=== PATIENT | male | born 1995 | race Two or more races ===

== ENCOUNTER 2018-04-09 22:12 | Inpatient (IN) | payer MEDICAID ==
[~2018-04-09] VITALS: Ht 177.8 cm; Wt 90.7 kg
[2018-04-09 22:25] VITALS: BP 175/95
[2018-04-09] MEDS ORDERED: Lidocaine 1% 10mg/ml/Epi 0.005mg/ml 30ml vial INJ ONE (23:15)
[2018-04-09] MEDS ORDERED: ceFAZolin 1gm/50ml Premix 50 ML IV ONE (23:15)
[2018-04-09] MEDS ORDERED: Morphine Sulfate 4mg/ml Inj IVP ONE (23:15)
[2018-04-09] MEDS ORDERED: Lidocaine HCl 2% Jelly 5ml Tube TOPIC ONE (23:15)
[2018-04-09] MEDS ORDERED: Ketorolac 30mg Inj IV ONE (23:15)
[2018-04-09] MEDS ORDERED: Neosporin Oint Ud Pkt TOP ONE (23:15)
[2018-04-10] MEDS ORDERED: Lidocaine HCl 2% Jelly 5ml Tube TOPIC ONE ×2 (00:30→00:35)
[2018-04-10] MEDS ORDERED: ceFAZolin 2gm/50ml Premix 50 ML ONE (00:57)
[2018-04-10] MEDS ORDERED: ceFAZolin 2gm/50ml Premix 50 ML IVPB ONE (01:00)
[2018-04-10] MEDS ORDERED: Morphine Sulfate 4mg/ml Inj IVP ONE (03:00)
[2018-04-10 03:02] VITALS: BP 135/89
[2018-04-10] MEDS ORDERED: LET 3ml Soln TOPIC ONE (05:00)
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
[2018-04-10] MEDS: Morphine Sulfate 4mg/ml Inj IVP PRN ×2 (05:55→11:06)
[2018-04-10] MEDS ORDERED: Bacitracin Oint UD TOPIC ONE (06:15)
[2018-04-10 06:37] VITALS: BP 142/96
[2018-04-10 07:15] LABS: ANION GAP 9 mmol/L (5-15); BLOOD UREA NITROGEN 14 mg/dL (7-18); CALCIUM 8.7 MG/DL (8.5-10.1); CARBON DIOXIDE 26 MMOL/L (21-32); CHLORIDE 101 MMOL/L (98-107); CREATININE 1.1 MG/DL (0.55-1.30); POTASSIUM 3.7 MMOL/L (3.5-5.1); SODIUM 136 MMOL/L (136-145)
[2018-04-10 07:20] LABS: ALANINE AMINOTRANSFERASE 161 U/L (12-78); ALBUMIN 4.2 G/DL (3.4-5.0); ALBUMIN/GLOBULIN RATIO 1.2 (1.0-2.7); ALKALINE PHOSPHATASE 101 U/L (46-116); ASPARTATE AMINO TRANSFERASE 63 U/L (15-37); BILIRUBIN,TOTAL 0.8 MG/DL (0.2-1.0)
[2018-04-10 07:28] LABS: BASOPHILS % (AUTO) 0.7 % (0.0-2.0); EOSINOPHILS % (AUTO) 1.4 % (0.0-3.0); HEMATOCRIT 44.6 % (42.0-52.0); HEMOGLOBIN 15.9 G/DL (14.2-18.0); LYMPHOCYTES % (AUTO) 12.3 % (20.0-45.0); MEAN CORPUSCULAR VOLUME 89 FL (80-99); MONOCYTES % (AUTO) 10.7 % (1.0-10.0); NEUTROPHILS % (AUTO) 74.9 % (45.0-75.0); PLATELET COUNT 144 K/UL (150-450); RED CELL DISTRIBUTION WIDTH 11.3 % (11.6-14.8); WHITE BLOOD COUNT 11.6 K/UL (4.8-10.8)
[2018-04-10 08:00] VITALS: BP 147/92
--- NOTE | 2018-04-10 08:04 | Consultation ---
Consult Note Consult Note patient seen evaluated. Right knee laceration over patella. No Fracture. Wound irrigated and debrided in the ER this am. Will require secondary debridement in the OR. Schedule to proceed with wash out and debridement. EKG preop. NPO Past midnight Herber Sanon MD Apr 10, 2018 08:04
[2018-04-10] MEDS ORDERED: ceFAZolin 1gm/50ml Premix 50 ML IV SCH (08:15)
[2018-04-10 08:23] LABS: APPEARANCE,URINE CLEAR; BILIRUBIN, URINE NEGATIVE (NEGATIVE); GLUCOSE, URINE (UA) NEGATIVE (NEGATIVE); KETONES,URINE NEGATIVE (NEGATIVE); LEUKOCYTE ESTERASE ,URINE NEGATIVE (NEGATIVE); NITRITE,URINE NEGATIVE (NEGATIVE); PH,URINE 6 (4.5-8.0); PROTEIN,URINE 1+ (NEGATIVE); UROBILINOGEN,URINE NORMAL MG/DL (0.0-1.0)
[2018-04-10 08:31] LABS: COLOR,URINE YELLOW
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
[2018-04-10] MEDS ORDERED: ceFAZolin 1gm in D5W 55ml IVP SCH (11:00)
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
[2018-04-10 12:00] VITALS: BP 167/110
--- NOTE | 2018-04-10 12:23 | Anethesia Preoperative Eval ---
Anesthesia Pre-op PMH/ROS General Date of Evaluation: Apr 10, 2018 Time of Evaluation: 14:13 Anesthesiologist: Smiley ASA Score: ASA 1 Mallampati Score Class I : Soft palate, uvula, fauces, pillars visible Class II: Soft palate, uvula, fauces visible Class III: Soft palate, base of uvula visible Class IV: Only hard plate visible Mallampati Classification: Class I Surgeon: Talita Diagnosis: R Knee Pain Surgical Procedure: R Knee I and D Anesthesia History: none Family History: no anesthesia problems Allergies: Coded Allergies: No Known Allergies (Unverified , 04/09/18) Medications: see eMAR Past Medical History Hematology/Immune: Reports: other - Leukocytosis Anesthesia Pre-op Phys. Exam Physician Exam Last Vital Signs Date Time Temp Pulse Resp B/P (MAP) Pulse Ox O2 Delivery O2 Flow Rate FiO2 04/10/18 11:36 98.3 04/10/18 08:00 79 20 147/92 97 04/10/18 06:48 Room Air Constitutional: NAD Neurologic: CN 2-12 intact Cardiovascular: RRR Respiratory: CTA Gastrointestinal: S/NT/ND Airway Exam Mallampati Score: Class I MO: full ROM: full Teeth: intact Anesthesia Pre-op A/P Labs Hematology Test 04/10/18 06:44 White Blood Count 11.6 K/UL (4.8-10.8) H Red Blood Count 5.00 M/UL (4.70-6.10) Hemoglobin 15.9 G/DL (14.2-18.0) Hematocrit 44.6 % (42.0-52.0) Mean Corpuscular Volume 89 FL (80-99) Mean Corpuscular Hemoglobin 31.8 PG (27.0-31.0) H Mean Corpuscular Hemoglobin Concent 35.6 G/DL (32.0-36.0) Red Cell Distribution Width 11.3 % (11.6-14.8) L Platelet Count 144 K/UL (150-450) L Mean Platelet Volume 7.1 FL (6.5-10.1) Neutrophils (%) (Auto) 74.9 % (45.0-75.0) Lymphocytes (%) (Auto) 12.3 % (20.0-45.0) L Monocytes (%) (Auto) 10.7 % (1.0-10.0) H Eosinophils (%) (Auto) 1.4 % (0.0-3.0) Basophils (%) (Auto) 0.7 % (0.0-2.0) Coagulation Test 04/10/18 06:44 Prothrombin Time 10.0 SEC (9.30-11.50) Prothromb Time International Ratio 1.0 (0.9-1.1) Activated Partial Thromboplast Time 26 SEC (23-33) Chemistry Test 04/10/18 06:44 Sodium Level 136 MMOL/L (136-145) Potassium Level 3.7 MMOL/L (3.5-5.1) Chloride Level 101 MMOL/L (98-107) Carbon Dioxide Level 26 MMOL/L (21-32) Anion Gap 9 mmol/L (5-15) Blood Urea Nitrogen 14 mg/dL (7-18) Creatinine 1.1 MG/DL (0.55-1.30) Estimat Glomerular Filtration Rate > 60 mL/min (>60) Glucose Level 124 MG/DL (74-106) H Calcium Level 8.7 MG/DL (8.5-10.1) Total Bilirubin 0.8 MG/DL (0.2-1.0) Aspartate Amino Transf (AST/SGOT) 63 U/L (15-37) H Alanine Aminotransferase (ALT/SGPT) 161 U/L (12-78) H Alkaline Phosphatase 101 U/L (46-116) Total Protein 7.8 G/DL (6.4-8.2) Albumin 4.2 G/DL (3.4-5.0) Globulin 3.6 g/dL Albumin/Globulin Ratio 1.2 (1.0-2.7) Risk Assessment & Plan Assessment: ASA 1 Plan: GA Status Change Before Surgery: No Pre-Antibiotics Drug: Wali Christianson MD Apr 10, 2018 12:23
[2018-04-10] MEDS: ceFAZolin sod 1 GM in D5W 110 ML IVP SCH ×2 (12:49→19:51)
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
[2018-04-10] MEDS ORDERED: Hydromorphone 0.5mg/0.5ml inj IVP PRN (13:45)
[2018-04-10] MEDS ORDERED: Heparin 5000 units/ml inj SUBQ SCH ×2 (14:00→21:00)
[2018-04-10 16:00] VITALS: BP 167/98
[2018-04-10] MEDS: Hydromorphone 0.5mg/0.5ml inj IVP PRN ×4 (16:33→22:37)
[2018-04-10 20:00] VITALS: BP 157/92
[2018-04-11] VITALS (14 sets, daily range): BP systolic 135–179; BP diastolic 65–107
[2018-04-11] MEDS: Hydromorphone 0.5mg/0.5ml inj IVP PRN ×10 (01:03→23:53)
[2018-04-11] MEDS: ceFAZolin sod 1 GM in D5W 110 ML IVP SCH (03:17)
[2018-04-11] MEDS ORDERED: NeoSporin Gu Irrig 1ml Amp IRRIG ONE (06:26)
[2018-04-11] MEDS ORDERED: Bacitracin 50000 Units Vial ONE (06:26)
[2018-04-11] MEDS ORDERED: EPINEPHrine 1mg/1ml Amp ONE (06:26)
[2018-04-11] MEDS ORDERED: Ropivacaine 5mg/ml Vial 30ml INJ ONE (06:26)
[2018-04-11] MEDS ORDERED: Bupivacaine 0.5% Inj 30 ml vial INJ ONE (06:26)
[2018-04-11] MEDS ORDERED: Lidocaine 1% MPF 10mg/ml 5ml ONE (06:44)
[2018-04-11] MEDS ORDERED: Propofol 200mg/20ml IV ONE ×2 (06:44→07:16)
[2018-04-11] MEDS ORDERED: Midazolam 2mg/2ml Inj ONE (06:58)
[2018-04-11] MEDS ORDERED: fentaNYL 100 mcg/2 mL IV ONE (06:58)
[2018-04-11] MEDS ORDERED: Zemuron 50mg/5ml Inj IV ONE (06:59)
[2018-04-11] MEDS ORDERED: Labetalol 5mg/ml 20ml vial IV ONE (07:00)
[2018-04-11] MEDS ORDERED: NS Irrig 4000ml IRRIG ONE (07:00)
[2018-04-11] MEDS ORDERED: Sterile Water Irrig 1000ml IRRIG ONE (07:00)
[2018-04-11] MEDS ORDERED: LR 1000ml ONE (07:00)
[2018-04-11 07:01] LABS: ALANINE AMINOTRANSFERASE 124 U/L (12-78); ALBUMIN 3.8 G/DL (3.4-5.0); ALKALINE PHOSPHATASE 95 U/L (46-116); ANION GAP 9 mmol/L (5-15); ASPARTATE AMINO TRANSFERASE 46 U/L (15-37); BLOOD UREA NITROGEN 9 mg/dL (7-18); CALCIUM 8.5 MG/DL (8.5-10.1); CARBON DIOXIDE 27 MMOL/L (21-32); CHLORIDE 100 MMOL/L (98-107); CREATININE 0.9 MG/DL (0.55-1.30); POTASSIUM 3.6 MMOL/L (3.5-5.1); SODIUM 136 MMOL/L (136-145)
--- NOTE | 2018-04-11 07:03 | Pre-Procedure Note/Attestation ---
Pre-Procedure Note/Attestation Complete Prior to Procedure Planned Procedure: left Procedure Narrative: left knee I&D of wound Indications for Procedure Pre-Operative Diagnosis: left knee infected wound Attestation I attest that I discussed the nature of the procedure; its benefits; risks and complications; and alternatives (and the risks and benefits of such alternatives ), prior to the procedure, with the patient (or the patient's legal textile designs sales representative). I attest that, if there was a reasonable possibility of needing a blood transfusion, the patient (or the patient's legal textile designs sales representative) was given the [facility] standardized written summary, pursuant to the [place] Blood Safety Act ([place] Health and Safety Code # 1645, as amended). I attest that I re-evaluated the patient just prior to the surgery and that there has been no change in the patient's H&P, except as documented below:none Herber Sanon MD Apr 11, 2018 07:03
[2018-04-11 07:12] LABS: BASOPHILS % (AUTO) 0.5 % (0.0-2.0); EOSINOPHILS % (AUTO) 2.5 % (0.0-3.0); HEMATOCRIT 44.6 % (42.0-52.0); HEMOGLOBIN 15.3 G/DL (14.2-18.0); LYMPHOCYTES % (AUTO) 9.5 % (20.0-45.0); MEAN CORPUSCULAR VOLUME 91 FL (80-99); MONOCYTES % (AUTO) 9.8 % (1.0-10.0); NEUTROPHILS % (AUTO) 77.8 % (45.0-75.0); PLATELET COUNT 126 K/UL (150-450); RED BLOOD COUNT 4.92 M/UL (4.70-6.10); RED CELL DISTRIBUTION WIDTH 11.2 % (11.6-14.8); WHITE BLOOD COUNT 12.2 K/UL (4.8-10.8)
[2018-04-11] MEDS ORDERED: Norco 5mg/325mg tab ORAL PRN (07:15)
[2018-04-11] MEDS ORDERED: LR 1000ml 1,000 ML IVLG SCH (07:31)
[2018-04-11] MEDS ORDERED: fentaNYL 100 mcg/2 mL IV PRN (07:45)
[2018-04-11] MEDS ORDERED: Midazolam 2mg/2ml Inj IVP PRN (07:45)
[2018-04-11] MEDS ORDERED: Hydromorphone 0.5mg/0.5ml inj IVP PRN (07:45)
[2018-04-11] MEDS ORDERED: DiphenhydrAMINE 50mg/ml Inj IVP PRN (07:45)
[2018-04-11] MEDS ORDERED: Labetalol 5mg/ml 20ml vial IV PRN (07:45)
--- NOTE | 2018-04-11 08:03 | Brief Operative Note ---
Immediate Post Operative Note Operative Note Chief Complaint: left knee infected laceration Pre-op Diagnosis: left knee infected laceration Procedure: left knee I&D of wound Post-op Diagnosis: same as pre-op Findings: consistent w/pre-op dx studies Surgeon: md kelby Vegetable Trimmer: roland leigh Anesthesiologist: md alexis Anesthesia: general Specimen: yes Complications: none Condition: stable Fluids: ns Estimated Blood Loss: minimal Drains: none Implant(s) used?: No Yamileth Leigh Apr 11, 2018 08:03
--- NOTE | 2018-04-11 08:23 | Immediate Post-Op Evaluation ---
Immediate Post-Op Evalulation Immediate Post-Op Evalulation Procedure: I&D left knee Date of Evaluation: Apr 11, 2018 Time of Evaluation: 08:06 IV Fluids: LR 700ml Blood Products: 0 Estimated Blood Loss: 10ml Urinary Output: 0 Blood Pressure Systolic: 179 Blood Pressure Diastolic: 107 Pulse Rate: 89 Respiratory Rate: 21 O2 Sat by Pulse Oximetry: 98 Temperature (Fahrenheit): 98.3 Pain Score (1-10): 0 Nausea: No Vomiting: No Complications none Patient Status: awake, patent, none Hydration Status: adequate Drug: none Radha Ying M.D. Apr 11, 2018 08:23
[2018-04-11] MEDS: D5 1/2NS 1,000 ML IV SCH ×2 (09:15→20:15)
--- NOTE | 2018-04-11 09:36 | Diagnostic Imaging Report ---
Indication: Dyspnea Technique: One view of the chest Comparison: none Findings: Lungs and pleural spaces are clear. Heart size is normal Impression: No acute process
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
[2018-04-11] MEDS: Docusate Sod/Senna tab ORAL SCH ×2 (10:50→17:41)
[2018-04-11] MEDS: ceFAZolin sod 1 GM in D5W 110 ML IVPB SCH ×2 (12:14→20:00)
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
[2018-04-11] MEDS ORDERED: Simethicone Drops 80mg/1.2ml ORAL ONE (14:00)
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
[2018-04-12] VITALS: BP 128/84
[2018-04-12] MEDS: D5 1/2NS 1,000 ML IV SCH (01:43)
[2018-04-12 04:00] VITALS: BP 131/86
[2018-04-12] MEDS: ceFAZolin sod 1 GM in D5W 110 ML IVPB SCH (04:08)
[2018-04-12] MEDS: Hydromorphone 0.5mg/0.5ml inj IVP PRN (04:13)
[2018-04-12 06:12] LABS: BASOPHILS % (AUTO) 0.8 % (0.0-2.0); EOSINOPHILS % (AUTO) 6.6 % (0.0-3.0); HEMATOCRIT 41.5 % (42.0-52.0); HEMOGLOBIN 14.3 G/DL (14.2-18.0); LYMPHOCYTES % (AUTO) 20.8 % (20.0-45.0); MEAN CORPUSCULAR VOLUME 92 FL (80-99); MONOCYTES % (AUTO) 11.8 % (1.0-10.0); NEUTROPHILS % (AUTO) 60.1 % (45.0-75.0); PLATELET COUNT 124 K/UL (150-450); RED BLOOD COUNT 4.53 M/UL (4.70-6.10); RED CELL DISTRIBUTION WIDTH 11.3 % (11.6-14.8); WHITE BLOOD COUNT 7.8 K/UL (4.8-10.8)
[2018-04-12 06:35] LABS: ALANINE AMINOTRANSFERASE 135 U/L (12-78); ALBUMIN 3.7 G/DL (3.4-5.0); ALKALINE PHOSPHATASE 93 U/L (46-116); ANION GAP 9 mmol/L (5-15); ASPARTATE AMINO TRANSFERASE 73 U/L (15-37); BILIRUBIN,TOTAL 0.8 MG/DL (0.2-1.0); BLOOD UREA NITROGEN 6 mg/dL (7-18); CALCIUM 8.9 MG/DL (8.5-10.1); CARBON DIOXIDE 29 MMOL/L (21-32); CHLORIDE 100 MMOL/L (98-107); CREATININE 1.1 MG/DL (0.55-1.30); POTASSIUM 3.3 MMOL/L (3.5-5.1); SODIUM 138 MMOL/L (136-145)
--- NOTE | 2018-04-12 08:54 | 48 Hour Post Anesthesia Eval ---
Post Anesthesia Evaluation Procedure: I&D left knee Date of Evaluation: Apr 12, 2018 Time of Evaluation: 08:53 Blood Pressure Systolic: 128 0: 82 Pulse Rate: 76 Respiratory Rate: 20 Temperature (Fahrenheit): 97.6 O2 Sat by Pulse Oximetry: 98 Airway: patent Nausea: No Vomiting: No Pain Intensity: 3 Hydration Status: adequate Cardiopulmonary Status: stable Mental Status/LOC: patient returned to baseline Follow-up Care/Observations: n/a Post-Anesthesia Complications: none Follow-up care needed: N/A Sotero Waters MD Apr 12, 2018 08:54
[2018-04-12] MEDS: Docusate Sod/Senna tab ORAL SCH (09:09)
[2018-04-12] MEDS ORDERED: HYDROcodone/Acetamin 10/325 tab ORAL PRN ×2 (09:15→13:15)
[2018-04-12] MEDS ORDERED: D5 1/2NS 1000ml IV ONE (10:34)
[2018-04-12] MEDS ORDERED: HYDROcodone/Acetamin 10/325 tab ORAL SCH (11:00)
[2018-04-12 12:00] VITALS: BP 155/85
--- NOTE | 2018-04-12 12:16 | Orthopedic Progress Note ---
Orthopedic - Progress Note Objective Vital Signs Laboratory Tests Test 04/12/18 05:33 White Blood Count 7.8 K/UL (4.8-10.8) Red Blood Count 4.53 M/UL (4.70-6.10) L Hemoglobin 14.3 G/DL (14.2-18.0) Hematocrit 41.5 % (42.0-52.0) L Mean Corpuscular Volume 92 FL (80-99) Mean Corpuscular Hemoglobin 31.7 PG (27.0-31.0) H Mean Corpuscular Hemoglobin Concent 34.6 G/DL (32.0-36.0) Red Cell Distribution Width 11.3 % (11.6-14.8) L Platelet Count 124 K/UL (150-450) L Mean Platelet Volume 7.7 FL (6.5-10.1) Neutrophils (%) (Auto) 60.1 % (45.0-75.0) Lymphocytes (%) (Auto) 20.8 % (20.0-45.0) Monocytes (%) (Auto) 11.8 % (1.0-10.0) H Eosinophils (%) (Auto) 6.6 % (0.0-3.0) H Basophils (%) (Auto) 0.8 % (0.0-2.0) Sodium Level 138 MMOL/L (136-145) Potassium Level 3.3 MMOL/L (3.5-5.1) L Chloride Level 100 MMOL/L (98-107) Carbon Dioxide Level 29 MMOL/L (21-32) Anion Gap 9 mmol/L (5-15) Blood Urea Nitrogen 6 mg/dL (7-18) L Creatinine 1.1 MG/DL (0.55-1.30) Estimat Glomerular Filtration Rate > 60 mL/min (>60) Glucose Level 113 MG/DL (74-106) H Calcium Level 8.9 MG/DL (8.5-10.1) Total Bilirubin 0.8 MG/DL (0.2-1.0) Aspartate Amino Transf (AST/SGOT) 73 U/L (15-37) H Alanine Aminotransferase (ALT/SGPT) 135 U/L (12-78) H Alkaline Phosphatase 93 U/L (46-116) Total Protein 7.5 G/DL (6.4-8.2) Albumin 3.7 G/DL (3.4-5.0) Globulin 3.8 g/dL Albumin/Globulin Ratio 1.0 (1.0-2.7) Last 24 Hour Vital Signs Date Time Temp Pulse Resp B/P (MAP) Pulse Ox O2 Delivery O2 Flow Rate FiO2 04/12/18 12:00 98.5 88 18 155/85 99 Room Air 98.5 04/12/18 08:54 207.7 76 20 98 04/12/18 04:00 97.9 83 20 131/86 100 Room Air 97.9 04/12/18 00:00 98.4 73 20 128/84 100 Room Air 98.4 04/11/18 20:05 98.2 78 20 149/89 100 Room Air 98.2 04/11/18 16:00 98.9 97 18 145/90 99 Room Air 98.9 I&O Intake and Output 04/11/18 04/12/18 19:00 07:00 Intake Total 1375 ml 1175 ml Output Total 10 ml 1000 ml Balance 1365 ml 175 ml Intake Oral 500 ml 500 ml IV Total 75 ml 675 ml Hemodialysis 800 ml Output Urine Total 1000 ml Estimated Blood Loss 10 ml Assessment Post-op Diagnosis POD 1 Procedure Performed left knee I&D of wound Plan Plan: discharge to home - d/c today after last dose IV abx. rx for pain meds/ PO abx in paper chart. Yamileth Dillard Apr 12, 2018 12:16
[2018-04-12] MEDS ORDERED: CEPHALEXIN500 MG ORAL (13:24)
[2018-04-12] MEDS ORDERED: PERCOCET 5-3251 EACH ORAL (13:25)
[2018-04-12] MEDS ORDERED: NS 275ml ONE (14:08)
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
== END 2018-04-12 14:09 | disposition home or self-care (01) | DRG 384 ==
LOC: EMR 22:40 → 4E 04-10 04:47 → EDBEDREQ 04-10 04:55 → 3E 04-11 18:11
PROC: 0JCP0ZZ Extirpation of Matter from Left Lower Leg Subcutaneous Tissue and Fascia, Open Approach (ICD-10-PCS; 2018-04-11)
PROC: 0JBP0ZZ Excision of Left Lower Leg Subcutaneous Tissue and Fascia, Open Approach (ICD-10-PCS; principal; 2018-04-11 07:00)
DX: S81.022A Laceration with foreign body, left knee, initial encounter (principal); D61.818 Other pancytopenia; D69.6 Thrombocytopenia, unspecified; R03.0 Elevated blood-pressure reading, without diagnosis of hypertension; S30.811A Abrasion of abdominal wall, initial encounter; T14.8XXA Other injury of unspecified body region, initial encounter; V28.4XXA Motorcycle driver injured in noncollision transport accident in traffic accident, initial encounter; Y92.415 Exit ramp or entrance ramp of street or highway as the place of occurrence of the external cause; S60.812A Abrasion of left wrist, initial encounter; S90.511A Abrasion, right ankle, initial encounter; S80.211A Abrasion, right knee, initial encounter
CPT/HCPCS: 36415; 71045; 80053; 81001; 85025; 85610; 85730; 86850; 86900; 86901; 87070; 87075; 87205; 94003; 94150; 99285; C9399; J2250; J2405; J8499